=== PATIENT | male | born 1945 | race Caucasian/White ===

== ENCOUNTER 2018-06-18 14:05 | Emergency (ER) | payer OTHER ==
[2018-06-18 14:36] VITALS: RESP 18
[2018-06-18 15:13] LABS: Basophils % (A) 0 %; Eosinophils # (A) 0.1 k/uL (0-0.7); Eosinophils % (A) 1 %; HCT 50.2 % (39.0-53.0); HGB 16.4 gm/dL (13.0-17.5); Lymphocytes # (A) 0.9 k/uL (1.0-4.8); Lymphocytes % (A) 13 %; MCH 33.1 pg (25.0-35.0); MCHC 32.7 g/dL (31.0-37.0); MCV 101.1 fL (80.0-100.0); Mean Platelet Volume 7.6; Monocytes # (A) 0.4 k/uL (0-1.0); Monocytes % (A) 5 %; Neutrophils # (A) 5.4 k/uL (1.3-7.7); Neutrophils % (A) 80 %; Platelet Count 151 k/uL (150-450); RBC 4.97 m/uL (4.30-5.90); RDW 13.1 % (11.5-15.5); WBC 6.8 k/uL (3.8-10.6)
[2018-06-18 15:23] LABS: ALT 26 U/L (21-72); AST 34 U/L (17-59); Albumin 4.3 g/dL (3.5-5.0); Alkaline Phosphatase 116 U/L (38-126); Anion Gap 9 mmol/L; Blood Urea Nitrogen 13 mg/dL (9-20); Carbon Dioxide 21 mmol/L (22-30); Chloride 111 mmol/L (98-107); Glucose 92 mg/dL (74-99); Potassium 4.3 mmol/L (3.5-5.1); Sodium 141 mmol/L (137-145); Total Bilirubin 0.8 mg/dL (0.2-1.3)
[2018-06-18 15:32] LABS: Prothrombin Time 66.8 sec (9.0-12.0)
[2018-06-18 15:51] LABS: INR 7.3 (<1.2)
[2018-06-18 16:07] VITALS: BP 149/82; PULSE 64
[2018-06-18] MEDS ORDERED: PHYTONADIONE ORAL 5 MG/5 ML ORAL.SYRG PO STA (16:21)
--- NOTE | 2018-06-18 16:23 | ED ---
General Adult HPI - General Chief complaint: Recheck/Abnormal Lab/Rx Stated complaint: high coumadin Time Seen by Provider: 06/18/18 15:55 Source: patient, RN notes reviewed, old records reviewed Mode of arrival: ambulatory Limitations: no limitations - History of Present Illness Initial comments: This is a 72-year-old male Patient comes in with no complaints. Patient reports he has an Abnormal outpatient lab test. Per patient has elevated INR, patient currently taking Coumadin, patient taking same doses he has for 2+ years. Some 0.5 mg daily. Patient denies headache, no weakness lightheadedness or dizziness. Patient denies any injuries or nonhealing wounds - Related Data Home Medications Medication Instructions Recorded Confirmed Aspirin [Adult Low Dose Aspirin EC] 81 mg PO DAILY 06/18/18 06/18/18 Cholecalciferol [Vitamin D3] 1,000 unit PO DAILY 06/18/18 06/18/18 Glucosam/José Luis-Msm1/C/Yang/Bosw 1 tab PO DAILY 06/18/18 06/18/18 [Glucosamine-Chondroitin Tablet] [place]-3 Fatty Acids/Fish Oil [Fish 1 cap PO DAILY 06/18/18 06/18/18 Oil 1,000 mg Softgel] Warfarin [Coumadin] 7.5 mg PO HS 06/18/18 06/18/18 Allergies Allergy/AdvReac Type Severity Reaction Status Date / Time No Known Allergies Allergy Verified 06/18/18 16:15 Review of Systems ROS Statement: Those systems with pertinent positive or pertinent negative responses have been documented in the HPI. ROS Other: All systems not noted in ROS Statement are negative. Past Medical History Past Medical History: Deep Vein Thrombosis (DVT) History of Any Multi-Drug Resistant Organisms: None Reported Additional Past Surgical History / Comment(s): KIDNEY SURGERY Past Psychological History: No Psychological Hx Reported Smoking Status: Never smoker Past Alcohol Use History: Occasional Past Drug Use History: None Reported General Exam Limitations: no limitations General appearance: alert, in no apparent distress Head exam: Present: atraumatic, normocephalic, normal inspection Eye exam: Present: normal appearance, PERRL, EOMI. Absent: scleral icterus, conjunctival injection, periorbital swelling ENT exam: Present: normal exam, mucous membranes moist Neck exam: Present: normal inspection. Absent: tenderness, meningismus, lymphadenopathy Respiratory exam: Present: normal lung sounds bilaterally. Absent: respiratory distress, wheezes, rales, rhonchi, stridor Cardiovascular Exam: Present: regular rate, normal rhythm, normal heart sounds. Absent: systolic murmur, diastolic murmur, rubs, gallop, clicks GI/Abdominal exam: Present: soft, normal bowel sounds. Absent: distended, tenderness, guarding, rebound, rigid Extremities exam: Present: normal inspection, full ROM, normal capillary refill. Absent: tenderness, pedal edema, joint swelling, calf tenderness Back exam: Present: normal inspection Neurological exam: Present: alert, oriented X3, CN II-XII intact Psychiatric exam: Present: normal affect, normal mood Skin exam: Present: warm, dry, intact, normal color. Absent: rash Course Vital Signs 06/18/18 06/18/18 14:32 16:01 Temperature 98.9 F Pulse Rate 91 64 Respiratory 18 18 Rate Blood Pressure 153/92 149/82 O2 Sat by Pulse 98 98 Oximetry Medical Decision Making - Medical Decision Making 69 female the ER for evaluation Coumadin coagulopathy, patient given vitamin K we'll hold Coumadin 2 days and be discharged home - Lab Data Result diagrams: 06/18/18 15:04 06/18/18 15:04 Lab Results 06/18/18 06/18/18 06/18/18 Range/Units 15:04 15:04 15:04 WBC 6.8 (3.8-10.6) k/uL RBC 4.97 (4.30-5.90) m/uL Hgb 16.4 (13.0-17.5) gm/dL Hct 50.2 (39.0-53.0) % MCV 101.1 H (80.0-100.0) fL MCH 33.1 (25.0-35.0) pg MCHC 32.7 (31.0-37.0) g/dL RDW 13.1 (11.5-15.5) % Plt Count 151 (150-450) k/uL Neutrophils % 80 % Lymphocytes % 13 % Monocytes % 5 % Eosinophils % 1 % Basophils % 0 % Neutrophils # 5.4 (1.3-7.7) k/uL Lymphocytes # 0.9 L (1.0-4.8) k/uL Monocytes # 0.4 (0-1.0) k/uL Eosinophils # 0.1 (0-0.7) k/uL Basophils # 0.0 (0-0.2) k/uL PT 66.8 H (9.0-12.0) sec INR 7.3 H* (<1.2) Sodium 141 (137-145) mmol/L Potassium 4.3 (3.5-5.1) mmol/L Chloride 111 H (98-107) mmol/L Carbon Dioxide 21 L (22-30) mmol/L Anion Gap 9 mmol/L BUN 13 (9-20) mg/dL Creatinine 0.63 L (0.66-1.25) mg/dL Est GFR (CKD-EPI)AfAm >90 (>60 ml/min/1.73 sqM) Est GFR (CKD-EPI)NonAf >90 (>60 ml/min/1.73 sqM) Glucose 92 (74-99) mg/dL Calcium 9.0 (8.4-10.2) mg/dL Total Bilirubin 0.8 (0.2-1.3) mg/dL AST 34 (17-59) U/L ALT 26 (21-72) U/L Alkaline Phosphatase 116 (38-126) U/L Total Protein 8.0 (6.3-8.2) g/dL Albumin 4.3 (3.5-5.0) g/dL Disposition Clinical Impression: Coumadin toxicity Disposition: HOME SELF-CARE Condition: Good Instructions: Warfarin (By mouth) Is patient prescribed a controlled substance at d/c from ED?: No Referrals: [facility],Clinic [Primary Care Provider] - 1-2 days
[2018-06-18 16:41] VITALS: TEMP 98.2
== END 2018-06-18 16:39 | disposition home or self-care (01) ==
LOC: EC 14:05
DX: R79.1 Abnormal coagulation profile (principal); T45.515A Adverse effect of anticoagulants, initial encounter; Z86.718 Personal history of other venous thrombosis and embolism; Z79.82 Long term (current) use of aspirin; Z79.01 Long term (current) use of anticoagulants; Z79.899 Other long term (current) drug therapy
CPT/HCPCS: 36415; 80053; 85025; 85610; 99284

== ENCOUNTER → 2021-09-26 | Outpatient (CLI) | payer OTHER | END | disposition home or self-care (01) | LOC: LABPAT 15:20 | PROVIDERS: ATTEND Orthopaedic Surgery | DX: M17.11 Unilateral primary osteoarthritis, right knee (principal) | CPT/HCPCS: 87070 ==

== ENCOUNTER 2021-11-12 12:41 | Observation (INO) | payer OTHER, MEDICARE ==
[2021-11-05 09:31] VITALS: BMI 27.4
--- NOTE | 2021-11-11 11:14 | HP ---
HISTORY AND PHYSICAL DATE OF SURGERY: 11/12/2021 Rober Zuniga is a 76-year-old gentleman seen with symptomatic right knee osteoarthritis. We discussed options for treatment. He elected to proceed with right total knee arthroplasty. Consent was obtained. Medical clearance was provided by the [place]. PAST MEDICAL HISTORY: Osteoarthritis. PAST SURGICAL HISTORY: Kidney surgery, cataract surgery. DAILY MEDICATIONS: Aspirin and Coumadin. SOCIAL HISTORY: He denies current tobacco use. ALLERGIES: NONE REPORTED. PHYSICAL EVALUATION OF THE RIGHT KNEE: His range of motion is zero to 120 degrees. There is a mild effusion present. Tenderness along the lateral joint line. Crepitus along the lateral and patellofemoral compartments with range of motion. Pain with patellofemoral compression. Ligaments stable. Distal neurovascular exam intact. There is severe valgus deformity about the knee. Radiographs of the right knee reveal severe lateral compartment osteoarthritis with a severe valgus deformity. IMPRESSION: Symptomatic right knee osteoarthritis. PLAN: Right total knee arthroplasty. MMODL / IJN: [id number] /
[~2021-11-12 12:41] MED LIST: ACETAMINOPHEN TAB 500 MG TAB PO PRN; DEXAMETHASONE SOD PHOSPHATE 4 MG/ML 1 ML VIAL IV ONE; HYDROmorphone 0.5 MG/0.5 ML SYRINGE IVP PRN; LIDOCAINE 1% (10MG/ML) FOR IV START INTRADERMA PRN; MELOXICAM 7.5 MG TAB PO PRN; ONDANSETRON 4 MG/2 ML VIAL IVP ONE; TRANEXAMIC ACID 1,000 MG in SODIUM CHLORIDE 0.9% 100 ML IVPB PRN
[2021-11-12] MEDS: LACTATED RINGERS 1,000 ML IV SCH (13:34)
[2021-11-12 14:17] LABS: Prothrombin Time 11.3 sec (9.0-12.0)
[2021-11-12] MEDS ORDERED: fentaNYL (PF) 50 MCG/ML 2 ML AMP IVP ONE (14:26)
[2021-11-12] MEDS ORDERED: MIDAZOLAM 2 MG/2 ML VIAL IVP ONE (14:26)
[2021-11-12] MEDS ORDERED: ROPIVACAINE 0.2%-NS ON-Q PUMP 1,090 MG, EMPTY PAIN BALL 1 EACH MISCELLANE PRN (15:13)
--- NOTE | 2021-11-12 15:20 | P.ANPRN ---
Procedure Note - Anesthesia - Nerve Block Performed Right Adductor Canal Time Out Performed: Yes (14:25) Date of Procedure: 11/12/21 Procedure Start Time: : Procedure Stop Time: 14:36 Location of Patient: PreOp Indication: Acute Post-Operative Pain, Requested by Surgeon (Dr Cameron) Sedation Type: Sedate with meaningful contact maintained Preparation: Sterile Prep, Sterile Dressing Position: Supine Catheter: Indwelling Needle Types: Pajunk Needle Gauge: 21 Ultrasound used to visualize needle placement: Yes Ultrasound used to observe medication spread: Yes Injectate: 0.5% Ropivacaine (see comment for volume) (15cc) Blood Aspirated: No Pain Paresthesia on Injection Noted: No Resistance on Injection: Normal Image Stored and Saved: Yes Events: Uneventful and Well Tolerated
[2021-11-12] MEDS ORDERED: ROPIVACAINE 5 MG/ML 30 ML VIAL ONE (15:21)
[2021-11-12] MEDS ORDERED: SODIUM CHLORIDE 0.9% (PF) 10 ML VIAL ONE (15:21)
[2021-11-12] MEDS ORDERED: MIDAZOLAM 2 MG/2 ML VIAL ONE (15:21)
[2021-11-12] MEDS ORDERED: PROPOFOL 10 MG/ML 20 ML VIAL IV ONE (15:21)
[2021-11-12] MEDS ORDERED: TRANEXAMIC ACID 1,000 MG/10 ML VIAL ONE (15:21)
[2021-11-12] MEDS ORDERED: SODIUM CHLORIDE 0.9% 100 ML BAG ONE (15:21)
--- NOTE | 2021-11-12 15:22 | P.ANPRN ---
Procedure Note - Anesthesia - Nerve Block Performed Right iPack Time Out Performed: Yes Date of Procedure: 11/12/21 Procedure Start Time: 14:37 Procedure Stop Time: 14:48 Location of Patient: PreOp Indication: Acute Post-Operative Pain, Requested by Surgeon (Dr escamilla) Sedation Type: Sedate with meaningful contact maintained Preparation: Sterile Prep Position: Supine Catheter: None Needle Types: Pajunk Needle Gauge: 21 Ultrasound used to visualize needle placement: Yes Ultrasound used to observe medication spread: Yes Injectate: 0.5% Ropivacaine (see comment for volume) (15cc + 5cc PF Normal saline) Blood Aspirated: No Pain Paresthesia on Injection Noted: No Resistance on Injection: Normal Image Stored and Saved: Yes Events: Uneventful and Well Tolerated
[2021-11-12] MEDS ORDERED: LACTATED RINGERS 1,000 ML IV ONE ×3 (16:36)
[2021-11-12] MEDS ORDERED: ONDANSETRON 4 MG/2 ML VIAL IVP PRN (17:12)
[2021-11-12] MEDS ORDERED: NALOXONE 0.4 MG/ML 1 ML VIAL IV PRN (17:12)
[2021-11-12] MEDS ORDERED: HYDROcodone/APAP 5-325MG 1 EACH TAB PO PRN (17:12)
[2021-11-12] MEDS ORDERED: HYDROmorphone 0.2 MG/1 ML SYRINGE IVP PRN (17:12)
[2021-11-12] MEDS ORDERED: HYDROmorphone 0.5 MG/0.5 ML SYRINGE IVP PRN ×2 (17:12)
--- NOTE | 2021-11-12 17:12 | P.OP ---
Date of Procedure: 11/12/21 Preoperative Diagnosis: Right knee osteoarthritis Postoperative Diagnosis: Right knee osteoarthritis Procedure(s) Performed: Right total knee arthroplasty Implants: 1. Depuy attune size 5 right cruciate retaining cemented femur 2. Depuy attune size 5 fixed bearing cemented tibial baseplate 3. Depuy attune size 5 cruciate retaining fixed bearing 10 mm polyethylene tibial insert 4. Depuy attune 38 mm all polyethylene cemented patella Anesthesia: regional (Adductor canal catheter, Ipack block), spinal Surgeon: Chevy Cameron Brick Picker #1: Ole Fletcher Estimated Blood Loss (ml): 60 Pathology: other (bone) Condition: stable Disposition: PACU Indications for Procedure: 76-year-old patient with symptomatic right knee osteoarthritis. After having treatment options discussed, he elected to proceed with total knee arthroplasty. Operative Findings: see description of procedure Description of Procedure: Patient was taken to the operative suite after having an adductor canal catheter placed by the department of anesthesia as well as and Ipack block for postoperative pain management. Patient underwent a spinal anesthetic by the department of anesthesia. Patient was given preoperative IV intake antibiotics and TXA. A well-padded tourniquet was placed about the right lower extremity. The lower extremity was then prepped and draped in the normal sterile orthopedic fashion. The extremity was elevated, a tourniquet was insufflated to 300. A standard anterior incision was made sharply through skin. Dissection was taken down through the subcutaneous soft tissues down to the extensor mechanism. A medial arthrotomy was performed, patella was everted and knee was flexed. There was advanced osteoarthritis noted along with a severe valgus deformity. I introduced my distal intramedullary femoral drill. I then introduced the distal femoral cutting jig. Lonnie WALLACE secured the cutting jig with 2 pins. I held retractors in position while Lonnie WALLACE performed the distal femoral resection through the guide area we now removed her distal femoral cutting guide. We now placed our 4-in-1 femoral cutting block and positioned and it was secured with 2 pins by Lonnie WALLACE while I held the block in position. The distal femoral finishing was now completed. A proximal tibial cutting guide was positioned. I held the guide in the appropriate position with both hands well Lonnie WALLACE inserted stabilizing pins into the guide. Proximal tibial cut was made. We now placed a trial femoral component into position, along with an appropriate size tibial tray and insert. We now took the knee through range of motion and had full extension good flexion and good overall soft tissue balance noted. The patella was everted and stabilized with 2 towel clips held by Lonnie WALLACE while I performed a flush with patellar quad tendon utilizing a fresh sawblade. We templated the patella, appropriate drill holes were made. An appropriate trial patella was positioned, knee was taken through full range of motion with the patella tracking very nicely. The trial patella was removed. Drill holes were made through the femoral component. All trial components were removed after marking off the appropriate rotation of the tibia. Retractors were now positioned along the proximal tibia. An appropriate keel punch was made with the appropriate size tibial guide by myself on Lonnie WALLACE assisted by holding retractors. At this point appropriate size implants were chosen and opened. The joint was irrigated copiously with pulse lavage mechanical irrigation. The posterior capsule was infiltrated with local analgesic. The wound was irrigated with pulse lavage mechanical irrigation. We mixed antibiotic methylmethacrylate. We placed the knee into flexion. We placed multiple retractors assisted by Lonnie WALLACE to expose the proximal tibia. Once the methyl methacrylate was ready, the tibial component was cemented into place removing any excess methylmethacrylate form by both myself and Lonnie WALLACE. The femoral component was cemented into place removing the removing any excess methylmethacrylate performed by both myself and Lonnie WALLACE. We then inserted the appropriate size polyethylene tibial insert. We made sure that it was locked into position. We took the knee into full extension, and then back in a flexion making sure we had removed any excess methylmethacrylate. The patellar component was then cemented down and secured with clamp. Excess methylmethacrylate removed. We kept the knee in full extension, patellar clamp in position until methylmethacrylate had hardened. Once it had hardened the patellar clamp was removed. The knee was taken through full range of motion. The patella tracked nicely. There was good soft tissue balancing. The tourniquet was now released. Additional hemostasis was achieved via electrocautery. A second gram of TXA was given. The wound again was irrigated with pulse lavage mechanical irrigation. The superficial soft tissues were infiltrated local analgesic. The extensor mechanism was repaired with Ethibond. We checked the repair with range of motion and it was stable. The subcutaneous soft tissues were repaired with Vicryl in layers. The skin was approximated with pernio/Dermabond. Sterile dressings were applied followed by loose web roll and Warren bandage. The patient was transferred to a bed, and taken to recovery in stable and satisfactory condition. Lonnie WALLACE assisted with this complex procedure.
--- NOTE | 2021-11-12 18:10 | XR ---
EXAMINATION TYPE: XR knee limited RT DATE OF EXAM: 11/12/2021 5:48 PM INDICATION: Patient age:Male; 76 years old; Reason for study: Evaluation for Postop abnormality and alignment; COMPARISON: Radiograph 12/15/2013 TECHNIQUE: The right knee was examined in 2 projections. FINDINGS: Right total arthroplasty changes the knee with in appropriate alignment. There is postsurgi beth changes within the knee capsule including lucencies within the joint space consistent calf. It villavicencio rdware appears intact. There is no evidence of acute fracture. IMPRESSION: 1. No acute osseous pathology. 2. Post right total knee arthroplasty changes joint in appropriate anatomic position.
[2021-11-12] MEDS: SODIUM CHLORIDE 0.9% 1,000 ML IV SCH (21:40)
[2021-11-12] MEDS: SENNOSIDES-DOCUSATE SODIUM 1 EACH TAB PO SCH (22:33)
[2021-11-12] MEDS: HYDROcodone/APAP 5-325MG 1 EACH TAB PO PRN (23:23)
--- NOTE | 2021-11-13 02:35 | P.CONS ---
History of Present Illness - Reason for Consult Consult date: 11/12/21 medical management Requesting physician: Chevy Cameron - Chief Complaint OA - History of Present Illness 76 year old male with no significant past medical history patient presented for scheduled right total knee replacement , due to severe advanced OA. tolerated procedure well, no observed immediate complications post op , tolerated PO intake , did not walk yet, pain tolerated. denies any medical concerns denies chest pain or trouble breathing, abd pain , nausea or vomiting Review of Systems Pertinent positives as noted in HPI. All other systems were reviewed and are negative Past Medical History Past Medical History: Cancer, Deep Vein Thrombosis (DVT) Additional Past Medical History / Comment(s): DVTx2. renal cell carcinoma 2004. prostate cancer 2018 History of Any Multi-Drug Resistant Organisms: None Reported Additional Past Surgical History / Comment(s): KIDNEY SURGERY for renal cell carcinoma 2004. prostate procedure 02/05/21 Past Anesthesia/Blood Transfusion Reactions: No Reported Reaction Past Psychological History: No Psychological Hx Reported Smoking Status: Never smoker Past Alcohol Use History: Occasional Past Drug Use History: None Reported - Past Family History Mother Family Medical History: Cancer Additional Family Medical History / Comment(s): breast cancer age 95 Medications and Allergies Home Medications Medication Instructions Recorded Confirmed Type Aspirin [Adult Low Dose Aspirin EC] 81 mg PO DAILY 11/05/21 11/12/21 History Cholecalciferol [Vitamin D3 (25 25 mcg PO DAILY 11/05/21 11/12/21 History Mcg = 1000 Iu)] [place]-3 Fatty Acids/Fish Oil [Fish 1 each PO DAILY 11/05/21 11/12/21 History Oil 1,000 mg Softgel] Warfarin [Coumadin] 3.75 mg PO SUTUTHSA 11/05/21 11/12/21 History Warfarin [Coumadin] 7.5 mg PO MOWEFR 11/05/21 11/12/21 History Allergies Allergy/AdvReac Type Severity Reaction Status Date / Time No Known Allergies Allergy Verified 11/12/21 13:15 Physical Exam Vitals: Vital Signs Temp Pulse Pulse Resp BP BP Pulse Ox 11/12/21 22:55 158/82 11/12/21 22:40 80 149/71 97 11/12/21 22:25 74 156/82 98 11/12/21 22:10 87 148/86 94 L 11/12/21 21:55 93 146/84 93 L 11/12/21 21:40 75 149/78 98 11/12/21 21:25 75 149/78 98 11/12/21 21:19 57 L 16 11/12/21 21:10 74 161/86 11/12/21 20:55 81 153/97 11/12/21 20:40 88 169/88 95 11/12/21 20:20 98.8 F 85 173/96 93 L 11/12/21 19:00 57 L 16 153/87 95 11/12/21 18:45 51 L 16 146/80 95 11/12/21 18:30 46 L 16 148/83 95 11/12/21 18:15 53 L 16 138/77 96 11/12/21 18:00 53 L 16 139/74 96 11/12/21 17:43 51 L 16 134/74 95 11/12/21 17:28 97 F L 16 134/74 95 11/12/21 14:51 59 L 16 127/76 98 11/12/21 13:20 97.4 F L 94 16 145/91 97 Intake and Output 11/12/21 11/12/21 11/13/21 14:59 22:59 06:59 Intake Total 500 750 Output Total 1060 Balance 500 -310 Intake: IV 500 750 Output: Urine 1000 Estimated Blood Loss 60 Other: Voiding Method Urinal # Voids 1 Weight 75.9 kg 75.9 kg Constitutional: No acute distress, conversant, pleasant Eyes: Anicteric sclerae, moist conjunctiva, Pupils equal round reactive to light ENMT: NC/AT Oropharynx clear, no erythema, or exudates Neck: Supple, FROM, no masses, or JVD No carotid bruits No thyromegaly Lungs: Clear to auscultation Clear to percussion Normal respiratory effort, no accessory muscle use Cardiovascular: Heart regular in rate and rhythm, No murmurs, gallops, or rubs No peripheral edema Abdominal: Soft Nontender, no guarding, rebound or rigidity Abdomen moving with respiration Normoactive bowel sounds No hepatomegaly, No splenomegaly No palpable mass No abdominal wall hernia noted Skin: Normal temperature, tone, texture, turgor No induration No subcutaneous nodules No rash, lesions No ulcers Extremities: No digital cyanosis No clubbing Pedal pulses intact and symmetrical Radial pulses intact and symmetrical No calf tenderness Psychiatric: Alert and oriented to person, place and time Appropriate affect fair judgement Neuro Muscles Strength 5/5 in all 4 extremities limitations over right lower extremity due to recent surgery Sensation to light touch grossly present throughout Cranial nerves II-XII grossly intact No focal sensory deficits Lymphatics: no palpable cervical or supraclavicular , or inguinal lymph nodes Assessment and Plan Assessment: severe right knee OA, s/p total knee arthroplasty pod #zero pain control and DVT PPX per ortho follow up CBC and BMP Thank you for allowing us to participate in the care of this patient. Do not hesitate to contact us with questions. Someone can be reached from the [facility][Note 3] hospitalist group at all hours of the day at [phone].
[2021-11-13] MEDS: LACTATED RINGERS 1,000 ML IV SCH (08:26)
[2021-11-13] MEDS: HYDROcodone/APAP 5-325MG 1 EACH TAB PO PRN ×2 (08:55→20:00)
--- NOTE | 2021-11-13 09:32 | P.PN ---
Progress Note - Text Progress Note Date: 11/13/21 Patient evaluated at 0655 am. Patient is a 76 y/o male who is POD#1 following right TKA. He currently has an indwelling perineural catheter for post operative pain management. Patient sitting in bed and has not ambulated yet today. Reports a VAS of 3-4/10 on the medial aspect of his knee. NO complaints of fever/chills, tenderness at site of perineural catheter and/or paresthesias/numbness. Perineural catheter insitu and infusing well. Discussed with patient regarding importance of oral analgesia in addition to the perineural catheter over the next 48 hours to aid with pain control. Will follow up as indicated.
[2021-11-13 09:35] LABS: Basophils # (A) 0.02 X 10*3/uL (0.00-0.10); Basophils % (A) 0.3 %; Eosinophils # (A) 0 X 10*3/uL (0.04-0.35); Eosinophils % (A) 0 %; HCT 36.5 % (39.6-50.0); HGB 12.1 g/dL (13.0-17.0); Lymphocytes # (A) 0.92 X 10*3/uL (0.90-5.00); Lymphocytes % (A) 12.8 %; MCH 32.4 pg (27.0-32.0); MCHC 33.2 g/dL (32.0-37.0); MCV 97.9 fL (80.0-97.0); Mean Platelet Volume 10.5 fL (9.5-12.2); Monocytes # (A) 0.63 X 10*3/uL (0.20-1.00); Monocytes % (A) 8.8 %; Neutrophils # (A) 5.57 X 10*3/uL (1.80-7.70); Neutrophils % (A) 77.8 %; Platelet Count 141 X 10*3/uL (140-440); RBC 3.73 X 10*6/uL (4.40-5.60); RDW 13.6 % (11.5-14.5); WBC 7.16 X 10*3/uL (4.50-10.00)
[2021-11-13 09:57] LABS: African American GFR (CKD) 108.9 (60.0-200.0); Anion Gap 12.1 mmol/L (10.00-18.00); BUN/Creat Ratio 17.28 Ratio (12.00-20.00); Blood Urea Nitrogen 11.2 mg/dL (9.0-27.0); Calcium 8.2 mg/dL (8.7-10.3); Carbon Dioxide 20.4 mmol/L (20.0-27.5); Potassium 3.9 mmol/L (3.5-5.5)
[2021-11-13] MEDS: ENOXAPARIN 30 MG/0.3 ML SYRINGE SQ SCH ×2 (10:22→20:00)
[2021-11-13] MEDS: SODIUM CHLORIDE 0.9% 1,000 ML IV SCH (10:35)
[2021-11-13 10:46] LABS: Prothrombin Time 11.3 sec (9.0-12.0)
[2021-11-13] MEDS ORDERED: WARFARIN 7.5 MG TAB PO SCH (12:15)
--- NOTE | 2021-11-13 12:16 | P.PN ---
Subjective Patient admitted for right knee arthroplasty osteoarthritis patient has an attack in all catheter for pain management and patient pain is well-controlled disease with the didn't participate well with physical therapy. Patient otherwise denied any symptoms. Constitutional: Denied any fatigue denied any fever. Cardio vascular: denied any chest pain, palpitations Gastrointestinal denied any nausea vomiting Pulmonary: Denied any shortness of breath cough Neurologic denied any new focal deficits All inpatient medications were reviewed and appropriate changes in these medications as dictated in the interval history and assessment and plan. PHYSICAL EXAMINATION: GENERAL: The patient is alert and oriented x3, not in any acute distress. Well developed, well nourished. HEENT: Pupils are round and equally reacting to light. EOMI. No scleral icterus. No conjunctival pallor. Normocephalic, atraumatic. No pharyngeal erythema. No thyromegaly. CARDIOVASCULAR: S1 and S2 present. No murmurs, rubs, or gallops. PULMONARY: Chest is clear to auscultation, no wheezing or crackles. ABDOMEN: Soft, nontender, nondistended, normoactive bowel sounds. No palpable organomegaly. MUSCULOSKELETAL: Deferred to orthopedic surgery EXTREMITIES: No cyanosis, clubbing, or pedal edema. NEUROLOGICAL: Gross neurological examination did not reveal any focal deficits. SKIN: No rashes. Assessment and plan -History of DVT in the past patient is was resumed on Coumadin which is appropriate -History of renal cell carcinoma which is in remission and prostate cancer in remission -Right knee arthroplasty: Patient is status post right knee arthroplasty po stoperative day one pain is fairly well controlled but is not perspiring and physical therapy again Objective - Vital Signs Vital signs: Vital Signs Temp 98.1 F 11/13/21 02:00 Pulse 63 11/13/21 02:00 Resp 17 11/13/21 02:00 BP 114/73 11/13/21 02:00 Pulse Ox 95 11/13/21 02:00 Intake & Output 11/12/21 11/13/21 11/13/21 18:59 06:59 18:59 Intake Total 1100 150 180 Output Total 60 1200 150 Balance 1040 -1050 30 Weight 75.9 kg 75.9 kg Intake: IV 1100 150 Oral 180 Output: Urine 1200 150 Estimated Blood Loss 60 Other: Voiding Method Urinal # Voids 1 1 - Labs CBC & Chem 7: 11/13/21 03:37 11/13/21 03:37 Labs: Abnormal Lab Results - Last 24 Hours (Table) 11/13/21 11/13/21 Range/Units 03:37 03:37 RBC 3.73 L (4.40-5.60) X 10*6/uL Hgb 12.1 L (13.0-17.0) g/dL Hct 36.5 L (39.6-50.0) % MCV 97.9 H (80.0-97.0) fL MCH 32.4 H (27.0-32.0) pg Eosinophils # 0 L (0.04-0.35) X 10*3/uL Calcium 8.2 L (8.7-10.3) mg/dL
--- NOTE | 2021-11-13 12:20 | P.PN ---
Subjective Progress Note Date: 11/13/21 Principal diagnosis: Right knee osteoarthritis Patient was seen at bedside this morning sitting comfortably sitting up in chair. Patient says his knee is in moderate amount of pain. Patient says pain is mostly localized to the front of the knee and also on the medial side. Kae carnes did get up with physical therapy this morning is able to get to the chair. Patient says he has not had bowel movement yet, however, patient says he has been passing gas. Patient says he does not have a walker for home yet. Patient denies chest pain, fever, shortness of breath, nausea, vomiting, vision, loss of bowel/bladder control. Objective - Vital Signs Vital signs: Vital Signs Temp 98.1 F 11/13/21 02:00 Pulse 63 11/13/21 02:00 Resp 17 11/13/21 02:00 BP 114/73 11/13/21 02:00 Pulse Ox 95 11/13/21 02:00 Intake & Output 11/12/21 11/13/21 11/13/21 18:59 06:59 18:59 Intake Total 1100 150 180 Output Total 60 1200 150 Balance 1040 -1050 30 Weight 75.9 kg 75.9 kg Intake: IV 1100 150 Oral 180 Output: Urine 1200 150 Estimated Blood Loss 60 Other: Voiding Method Urinal # Voids 1 1 - Exam Right knee: Incision is clean, dry, and intact. The silver foam dressing is in good condition. There is minimal soft tissue swelling and ecchymosis surrounding the medial and lateral aspects of the incision. Calf is soft, no tenderness with palpation. Plantar flexion, dorsiflexion, EHL, FHL are intact. Sensory exam to light touch throughout the extremity is intact, dorsal pedis pulses 2+. - Labs CBC & Chem 7: 11/13/21 03:37 11/13/21 03:37 Labs: Abnormal Lab Results - Last 24 Hours (Table) 11/13/21 11/13/21 Range/Units 03:37 03:37 RBC 3.73 L (4.40-5.60) X 10*6/uL Hgb 12.1 L (13.0-17.0) g/dL Hct 36.5 L (39.6-50.0) % MCV 97.9 H (80.0-97.0) fL MCH 32.4 H (27.0-32.0) pg Eosinophils # 0 L (0.04-0.35) X 10*3/uL Calcium 8.2 L (8.7-10.3) mg/dL Assessment and Plan Assessment: Right knee osteoarthritis Postoperative day 1 status post right total knee arthroplasty Plan: 1. Right knee osteoarthritis - right total knee arthroplasty from yes, 11/12/2021. Patient stable at bedside this morning. Plan discharge home versus rehab tomorr versus 2. Appreciate medical management 3. Pain management - [place]; Dilaudid only if needed 4. DVT prophylaxis - Lovenox 5. GI prophylaxis - senna 6. PT/OT - weightbearing as tolerated with walker 7. Encourage incentive spirometer use 8. Discharge planning - discharge home versus rehab tomorrow versus Time with Patient: Less than 30
[2021-11-13] MEDS ORDERED: WARFARIN 7.5 MG TAB PO ONE (18:00)
[2021-11-13] MEDS: SENNOSIDES-DOCUSATE SODIUM 1 EACH TAB PO SCH (20:00)
[2021-11-14 04:00] LABS: INR 1.1 (<1.2); Prothrombin Time 11.8 sec (9.0-12.0)
[2021-11-14] MEDS: LACTATED RINGERS 1,000 ML IV SCH (05:41)
--- NOTE | 2021-11-14 08:47 | P.PN ---
Subjective Progress Note Date: 11/14/21 Principal diagnosis: status post right total knee arthroplasty Patient is evaluated at bedside today, his resting in his hospital bed. He states that his pain is better controlled today. He denies any headaches, lightheadedness, chest pain or shortness of breath. He did not ambulate much with this yesterday. I had a discussion today that he needs to get up with therapy and move around a little bit more today. Objective - Vital Signs Vital signs: Vital Signs Temp 98.6 F 11/14/21 02:00 Pulse 75 11/14/21 02:00 Resp 17 11/14/21 02:00 BP 137/78 11/14/21 02:00 Pulse Ox 95 11/14/21 02:00 Intake & Output 11/13/21 11/14/21 11/14/21 18:59 06:59 18:59 Intake Total 180 Output Total 300 250 Balance -120 -250 Intake: Oral 180 Output: Urine 300 250 Other: Voiding Method Urinal # Voids 1 - Exam Right lower extremity: Incision is clean, dry, and intact. The foam dressing is in good condition. Th ere is minimal soft tissue swelling and ecchymosis surrounding the medial and lateral aspects of the incision. Calf is soft, no tenderness with palpation. Plantar flexion, dorsiflexion, EHL, FHL are intact. Sensory exam to light touch throughout the extremity is intact, dorsal pedis pulses 2+. - Labs CBC & Chem 7: 11/13/21 03:37 11/13/21 03:37 Labs: Abnormal Lab Results - Last 24 Hours (Table) 11/13/21 11/13/21 Range/Units 03:37 03:37 RBC 3.73 L (4.40-5.60) X 10*6/uL Hgb 12.1 L (13.0-17.0) g/dL Hct 36.5 L (39.6-50.0) % MCV 97.9 H (80.0-97.0) fL MCH 32.4 H (27.0-32.0) pg Eosinophils # 0 L (0.04-0.35) X 10*3/uL Calcium 8.2 L (8.7-10.3) mg/dL Assessment and Plan Assessment: Postoperative day #2 status post right total knee arthroplasty Plan: Pain control, continue with current medication DVT prophylaxis, continue subcu medication Continue with physical therapy Weight-bear as tolerated, utilize walker at all times Ice and elevate often Medical recommendations Discharge planning: Discussed with case management and social work, plan is for discharge to rehab on 11/15/2021. Time with Patient: Less than 30
[2021-11-14] MEDS: ENOXAPARIN 30 MG/0.3 ML SYRINGE SQ SCH ×2 (09:21→21:49)
[2021-11-14] MEDS: SODIUM CHLORIDE 0.9% 1,000 ML IV SCH (10:52)
[2021-11-14] MEDS ORDERED: SENNOSIDES 8.6 MG TAB PO PRN (11:51)
--- NOTE | 2021-11-14 11:54 | P.PN ---
Subjective Patient admitted for right knee arthroplasty osteoarthritis patient has an attack in all catheter for pain management and patient pain is well-controlled disease with the didn't participate well with physical therapy. Patient otherwise denied any symptoms. 202111/10/2021 Patient pain is well controlled when not ambulating upon exercise and ambulation patient does still having pain. Patient does have bowel sounds were did not move his bowels didn't pass much of gas. Patient was started on senna and MiraLAX for that patient last bowel movement was on Friday. Patient was started on Lovenox due to prophylaxis dose at this time patient is also on Coumadin was resumed on Coumadin. Patient probably will be discharged to subacute rehabitati on tomorrow. Constitutional: Denied any fatigue denied any fever. Cardio vascular: denied any chest pain, palpitations Gastrointestinal denied any nausea vomiting Pulmonary: Denied any shortness of breath cough Neurologic denied any new focal deficits All inpatient medications were reviewed and appropriate changes in these medications as dictated in the interval history and assessment and plan. PHYSICAL EXAMINATION: GENERAL: The patient is alert and oriented x3, not in any acute distress. Well developed, well nourished. HEENT: Pupils are round and equally reacting to light. EOMI. No scleral icterus. No conjunctival pallor. Normocephalic, atraumatic. No pharyngeal erythema. No thyromegaly. CARDIOVASCULAR: S1 and S2 present. No murmurs, rubs, or gallops. PULMONARY: Chest is clear to auscultation, no wheezing or crackles. ABDOMEN: Soft, nontender, nondistended, normoactive bowel sounds. No palpable organomegaly. MUSCULOSKELETAL: Deferred to orthopedic surgery EXTREMITIES: No cyanosis, clubbing, or pedal edema. NEUROLOGICAL: Gross neurological examination did not reveal any focal deficits. SKIN: No rashes. Assessment and plan -History of DVT in the past patient was resumed on Coumadin which is appropriate patient is on 30 mg twice a day of Lovenox as well. -History of renal cell carcinoma which is in remission and prostate cancer in remission -Right knee arthroplasty: Patient is status post right knee arthroplasty postoperative day one pain is fairly well controlled but is not perspiring and physical therapy again Objective - Vital Signs Vital signs: Vital Signs Temp 98.6 F 11/14/21 02:00 Pulse 75 11/14/21 02:00 Resp 17 11/14/21 02:00 BP 137/78 11/14/21 02:00 Pulse Ox 95 11/14/21 02:00 Intake & Output 11/13/21 11/14/21 11/14/21 18:59 06:59 18:59 Intake Total 180 180 Output Total 300 250 225 Balance -120 -250 -45 Intake: Oral 180 180 Output: Urine 300 250 225 Other: Voiding Method Urinal Urinal # Voids 1 - Labs CBC & Chem 7: 11/13/21 03:37 11/13/21 03:37
[2021-11-14] MEDS ORDERED: WARFARIN 7.5 MG TAB PO SCH (12:15)
[2021-11-14] MEDS ORDERED: WARFARIN 7.5 MG TAB PO ONE (18:00)
[2021-11-14] MEDS: SENNOSIDES-DOCUSATE SODIUM 1 EACH TAB PO SCH (21:49)
[2021-11-15 05:32] LABS: INR 1.2 (<1.2); Prothrombin Time 12.5 sec (9.0-12.0)
[2021-11-15] MEDS: SODIUM CHLORIDE 0.9% 1,000 ML IV SCH (07:25)
[2021-11-15] MEDS: LACTATED RINGERS 1,000 ML IV SCH (07:27)
[2021-11-15 08:26] LABS: Basophils # (A) 0.02 X 10*3/uL (0.00-0.10); Basophils % (A) 0.3 %; Eosinophils # (A) 0.03 X 10*3/uL (0.04-0.35); Eosinophils % (A) 0.5 %; HCT 33.7 % (39.6-50.0); HGB 11.3 g/dL (13.0-17.0); Lymphocytes # (A) 1.17 X 10*3/uL (0.90-5.00); Lymphocytes % (A) 18.9 %; MCH 32.8 pg (27.0-32.0); MCHC 33.5 g/dL (32.0-37.0); MCV 97.7 fL (80.0-97.0); Mean Platelet Volume 11.2 fL (9.5-12.2); Monocytes # (A) 0.75 X 10*3/uL (0.20-1.00); Monocytes % (A) 12.1 %; Neutrophils # (A) 4.21 X 10*3/uL (1.80-7.70); Platelet Count 125 X 10*3/uL (140-440); RBC 3.45 X 10*6/uL (4.40-5.60); RDW 13.6 % (11.5-14.5); WBC 6.19 X 10*3/uL (4.50-10.00)
[2021-11-15] MEDS ORDERED: ACETAMINOPHEN TAB 325 MG TAB PO STA (09:29)
[2021-11-15 09:53] VITALS: RESP 18
--- NOTE | 2021-11-15 10:24 | P.PN ---
Subjective Progress Note Date: 11/15/21 Principal diagnosis: status post right total knee arthroplasty Patient is evaluated at bedside today, his resting in his hospital bed. He denies any headaches, lightheadedness, chest pain or shortness of breath. Patient's pain is greatly improved since yesterday. Objective - Vital Signs Vital signs: Vital Signs Temp 98.7 F 11/15/21 07:50 Pulse 85 11/15/21 07:50 Resp 18 11/15/21 07:50 BP 122/76 11/15/21 07:50 Pulse Ox 94 L 11/15/21 07:50 Intake & Output 11/14/21 11/15/21 11/15/21 18:59 06:59 18:59 Intake Total 180 180 Output Total 225 550 Balance -45 -550 180 Intake: Oral 180 180 Output: Urine 225 550 Other: Voiding Method Urinal Urinal # Voids 4 - Exam Right lower extremity: Incision is clean, dry, and intact. The foam dressing is in good condition. There is minimal soft tissue swelling and ecchymosis surrounding the medial and lateral aspects of the incision. Calf is soft, no tenderness with palpation. Plantar flexion, dorsiflexion, EHL, FHL are intact. Sensory exam to light touch throughout the extremity is intact, dorsal pedis pulses 2+. - Labs CBC & Chem 7: 11/15/21 04:53 11/13/21 03:37 Labs: Abnormal Lab Results - Last 24 Hours (Table) 11/15/21 11/15/21 Range/Units 04:49 04:53 RBC 3.45 L (4.40-5.60) X 10*6/uL Hgb 11.3 L (13.0-17.0) g/dL Hct 33.7 L (39.6-50.0) % MCV 97.7 H (80.0-97.0) fL MCH 32.8 H (27.0-32.0) pg Plt Count 125 L (140-440) X 10*3/uL Eosinophils # 0.03 L (0.04-0.35) X 10*3/uL PT 12.5 H (9.0-12.0) sec INR 1.2 H (<1.2) Assessment and Plan Assessment: Postoperative day #3 status post right total knee arthroplasty Plan: Pain control, plan for discharge on [place] 5 mg/325 mg DVT prophylaxis, we'll continue subcu medication until INR is therapeutic. INR prescription for draws has been placed in chart for rehab Continue with physical therapy Weight-bear as tolerated, utilize walker at all times Ice and elevate often Medical recommendations Discharge planning: Discharge to rehab today Time with Patient: Less than 30
[2021-11-15] MEDS: ENOXAPARIN 30 MG/0.3 ML SYRINGE SQ SCH (10:49)
--- NOTE | 2021-11-15 14:29 | P.DS ---
Providers Date of admission: 11/13/21 13:45 Expected date of discharge: 11/15/21 Attending physician: Chevy Cameron Consults: 11/12/21 17:12 Consult Physician Routine Consulting Provider: Fani Matson Consult Reason/Comments: Medical management Do you want consulting provider notified?: Yes Primary care physician: [facility] Hospital Course: Date of admission: 11/12/2021 Date of discharge: 11/15/2021 Admission diagnosis: Status post right total knee arthroplasty Discharge diagnosis: Same Attending physician: Dr. Cameron Surgical procedures: Right total knee arthroplasty Brief history: Patient is a 76-year-old male with a history of progressive primary right knee osteoarthritis. At this point patient has failed conservative treatment measures and has opted to proceed with a elective right total knee arthroplasty. Hospital course: Details of patient's surgery can be found in operative report. Patient tolerated the procedure well and was subsequently transported to orthopedic floor. Patient's orthopeidc and medical care was provided daily. Patient had daily laboratory tests performed for evaluation of overall blood counts. Patient had daily physical therapy to include strengthening range of motion as well as education with walker ambulation. Patient was treated with Lovenox for their postoperative DVT prophylaxis during their inpatient stay. Patient was noted to have a relatively uneventful postoperative course. Patient reported satisfactory pain control with oral pain medications by postoperative day 0. Patient showed satisfactory progress with physical therapy. Patient moved steadily through the program and had no difficulty meeting the goals by postoperative day 3. Given patient's otherwise satisfactory course and having met physical therapy goals, plan is to discharge patient rehab on postoperative day 3. Discharge condition/disposition: Patient will be discharged rehab in stable condition. Discharge medications: Instructions are given on resumption of patient's normal daily medications per primary care recommendation, in addition patient will be prescribed [place] 5mg/325mg, Heparin 5000 units, Colace 100mg, Mirilax 17g, Sennokot 8.6mg. Discharge instructions: 1. Wound care and infection precautions, keep incision dry and covered while showering, no lotions, creams, moisturizers. No soaking, tubs, pools, hottubs. Do not scrub over the incision. 2. Weight-bear as tolerated with walker / cane until follow-up. 3. Ice and elevate when necessary. Do not exceed 20 minutes per hour with ice pack. 4. Utilize compression sleeve until seen at first follow up appointment. 5. Visiting nursing care. 6. Home physical therapy including home CPM. 7. Pain meds and anticoagulants per prescription. 8. Pain medication has potential to cause constipation. Increase oral fluid and fiber intake. Contact primary care provider if you have not had a bowel movement within 48 hours after discharge 9. No anti-inflammatory medication until discussed at first post operative visit, this including Motrin, Aleve, Mobic, Diclofenac. 10. Follow up in office at 2 weeks postop with Lonnie Fletcher PA-C/Yobany Jama 11. Follow up with your primary care doctor 7-10 days after discharge. 12. Contact [facility] with any questions, . Procedures: Right total knee arthroplasty Patient Condition at Discharge: Good Plan - Discharge Summary Discharge Rx Participant: No New Discharge Prescriptions: New Heparin Sodium,Porcine [Heparin Sodium] 5,000 unit SQ Q12HR #30 each Docusate [Colace] 100 mg PO DAILY #30 capsule HYDROcodone/APAP 5-325MG [[place] 5-325] 1 tab PO Q6HR PRN #28 tab PRN Reason: Pain polyethylene glycoL 3350 [Miralax] 17 gm PO DAILY PRN #12 packet PRN Reason: Constipation Sennosides [Senokot] 8.6 mg PO DAILY PRN tab PRN Reason: Constipation Continue Warfarin [Coumadin] 7.5 mg PO MOWEFR Cholecalciferol [Vitamin D3 (25 Mcg = 1000 Iu)] 25 mcg PO DAILY [place]-3 Fatty Acids/Fish Oil [Fish Oil 1,000 mg Softgel] 1 each PO DAILY Aspirin [Adult Low Dose Aspirin EC] 81 mg PO DAILY Warfarin [Coumadin] 3.75 mg PO [facility] Discharge Medication List Aspirin [Adult Low Dose Aspirin EC] 81 mg PO DAILY 11/05/21 [History] Cholecalciferol [Vitamin D3 (25 Mcg = 1000 Iu)] 25 mcg PO DAILY 11/05/21 [History] [place]-3 Fatty Acids/Fish Oil [Fish Oil 1,000 mg Softgel] 1 each PO DAILY 11/05/21 [History] Warfarin [Coumadin] 3.75 mg PO [place] 11/05/21 [History] Warfarin [Coumadin] 7.5 mg PO MOWEFR 11/05/21 [History] Docusate [Colace] 100 mg PO DAILY #30 capsule 11/15/21 [Rx] HYDROcodone/APAP 5-325MG [[place] 5-325] 1 tab PO Q6HR PRN #28 tab 11/15/21 [Rx] Heparin Sodium,Porcine [Heparin Sodium] 5,000 unit SQ Q12HR #30 each 11/15/21 [Rx] Sennosides [Senokot] 8.6 mg PO DAILY PRN tab 11/15/21 [Rx] polyethylene glycoL 3350 [Miralax] 17 gm PO DAILY PRN #12 packet 11/15/21 [Rx] Follow up Appointment(s)/Referral(s): Ole Fletcher PAC [PHYSICIAN ENVIRONMENTAL ENGINEERING ASSISTANT] - 11/28/21 3:00 pm [facility] [NON-STAFF] - (Please call [facility] to let them know when you get home so that they schedule your in home nursing and physical therapy services. ) [facility] [Primary Care Provider] - 1 Week Ambulatory/Diagnostic Orders: Prothrombin Time INR [LAB.AMB] Location: None Selected Activity/Diet/Wound Care/Special Instructions: Orthopedic Discharge Instructions: 1. Wound care and infection precautions, keep incision dry and covered while showering, no lotions, creams, moisturizers. No soaking, pools, hot tubs. Do not scrub over incision. 2. Weight-bear as tolerated with walker / cane until follow-up. 3. Ice and elevate when necessary. Do not exceed 20 minutes per hour with ice pack. 4. Utilize compression sleeve until seen at first follow up appointment. 5. Pain meds and anticoagulants per prescription. 6. Pain medication has potential to cause constipation. Increase oral fluid and fiber intake. Contact primary care provider if you have not had a bowel movement within 48 hours after discharge. 7. No anti-inflammatory medication until discussed at first post operative visit, this including Motrin, Aleve, Mobic, Diclofenac. 8. Follow up in office at 2 weeks postop with Lonnie Fletcher PA-C/Yobany Wang PA-C 9. Follow up with your primary care doctor 7-10 days after discharge. 10. Contact [facility] with any questions, . Discharge Disposition: TRANSFER TO SNF/ECF
[2021-11-15 14:53] VITALS: BP 124/71; PULSE 43; TEMP 98.9
--- NOTE | 2021-11-15 15:15 | P.PN ---
Subjective Progress Note Date: 11/15/21 Subjective Patient admitted for right knee arthroplasty osteoarthritis patient has an attack in all catheter for pain management and patient pain is well-controlled disease with the didn't participate well with physical therapy. Patient otherwise denied any symptoms. 11/14/2021 Patient pain is well controlled when not ambulating upon exercise and ambulation patient does still having pain. Patient does have bowel sounds were did not move his bowels didn't pass much of gas. Patient was started on senna and MiraLAX for that patient last bowel movement was on Friday. Patient was started on Lovenox due to prophylaxis dose at this time patient is also on Coumadin was resumed on Coumadin. Patient probably will be discharged to subacute rehabitation tomorrow. 11/15/2021 Patient is seen and evaluated in follow-up and is status post right knee arthroplasty with orthopedics following closely. Patient continues with some right knee swelling and discomfort and surgical site is dry and intact with minimal redness noted around the dressing. Encourage the patient to increase activity as tolerated and work with physical therapy and will be going to [facility] for continued PT/OT therapy. Also encourage the patient to continue to elevate lower extremity while at rest and continue with recommended exercises to increase mobility. Patient with a low-grade temp early last night of 99.8 and has been afebrile today. Patient denies any chest pain or shortness of breath. Patient is resting comfortably with oxygen saturations of 94% on room air. Patient reports the tolerating diet with no reports of nausea or vomiting noted. Patient is passing gas and having bowel movements. Patient normally takes Coumadin and continue to be subtherapeutic and INR is 1.2 and most likely will need bridging with heparin subcu until Coumadin is therapeutic. Recommend close monitoring of PT/INR in the outpatient setting. Review of systems: Constitutional: Denied any fatigue denied any fever. Cardio vascular: denied any chest pain, palpitations Gastrointestinal denied any nausea vomiting Pulmonary: Denied any shortness of breath cough Neurologic denied any new focal deficits Labs: WBC is 6.19, hemoglobin is 11.3, platelets are 125, INR is 1.2. All inpatient medications were reviewed and appropriate changes in these medications as dictated in the interval history and assessment and plan. Active Medications Hydrocodone Bitart/Acetaminophen (Hydrocodone/Apap 5-325mg 1 Each Tab) 1 each PO Q6HR PRN PRN Reason: Pain Scale 1 to 5 Stop: 12/12/21 17:13 Last Admin: 11/13/21 20:00 Dose: 1 each Documented by: Hydrocodone Bitart/Acetaminophen (Hydrocodone/Apap 5-325mg 1 Each Tab) 2 each PO Q6HR PRN PRN Reason: Pain Scale 6 to 10 Stop: 12/12/21 17:13 Last Admin: 11/13/21 14:11 Dose: 2 each Documented by: Ropivacaine 1,090 mg/ Bandage/ (Support Products 1 each) 0 mg MISCELLANE Q2H PRN PRN Reason: Breakthrough Pain Stop: 12/12/21 15:14 Last Admin: 11/12/21 17:42 Dose: 1,090 mg Documented by: Enoxaparin Sodium (Enoxaparin 30 Mg/0.3 Ml Syringe) 30 mg SQ Q12HR [facility] Stop: 12/12/21 09:01 Last Admin: 11/15/21 10:49 Dose: 30 mg Documented by: Hydromorphone HCl (Hydromorphone 0.5 Mg/0.5 Ml Syringe) 0.5 mg IVP Q3HR PRN PRN Reason: Pain Scale 7 to 10 Stop: 12/12/21 17:13 Hydromorphone HCl (Hydromorphone 0.5 Mg/0.5 Ml Syringe) 0.125 mg IVP Q3HR PRN PRN Reason: Pain Scale 1 to 3 Stop: 12/12/21 17:13 Hydromorphone HCl (Hydromorphone 0.2 Mg/1 Ml Syringe) 0.2 mg IVP Q3HR PRN PRN Reason: Pain Scale 4 to 6 Stop: 12/12/21 17:13 Lactated Ringer's (Lactated Ringers) 1,000 mls @ 20 mls/hr IV .Q24H [facility] Stop: 12/12/21 05:51 Last Admin: 11/15/21 07:27 Dose: Not Given Documented by: Sodium Chloride (Saline 0.9%) 1,000 mls @ 50 mls/hr IV .Q20H [facility] Stop: 12/12/21 17:16 Last Admin: 11/15/21 07:25 Dose: 50 mls/hr Documented by: Lidocaine HCl (Lidocaine 1% (10mg/Ml) For Iv Start) 0.1 ml INTRADERMA PER PROTOCOL PRN PRN Reason: IV Start Stop: 12/12/21 05:51 Miscellaneous Information (Warfarin Per Pharmacy) 1 each MISCELLANE DIRECTED PRN PRN Reason: Per Protocol Naloxone HCl (Naloxone 0.4 Mg/Ml 1 Ml Vial) 0.2 mg IV Q2M PRN PRN Reason: Opioid Reversal Stop: 12/12/21 17:13 Ondansetron HCl (Ondansetron 4 Mg/2 Ml Vial) 4 mg IVP Q8HR PRN PRN Reason: Nausea And Vomiting Stop: 12/12/21 17:13 Senna (Sennosides 8.6 Mg Tab) 8.6 mg PO DAILY PRN PRN Reason: Constipation Senna/Docusate Sodium (Sennosides-Docusate Sodium 1 Each Tab) 2 each PO HS [facility] Stop: 12/12/21 21:01 Last Admin: 11/14/21 21:49 Dose: 2 each Documented by: Warfarin Sodium (Warfarin 3 Mg Tab) 9 mg PO ONCE@1800 ONE Stop: 11/15/21 18:01 PHYSICAL EXAMINATION: GENERAL: The patient is alert and oriented x3, not in any acute distress. Well developed, well nourished. HEENT: Pupils are round and equally reacting to light. EOMI. No scleral icterus. No conjunctival pallor. Normocephalic, atraumatic. No pharyngeal erythema. No thyromegaly. CARDIOVASCULAR: S1 and S2 present. No murmurs, rubs, or gallops. PULMONARY: Chest is clear to auscultation, no wheezing or crackles. ABDOMEN: Soft, nontender, nondistended, normoactive bowel sounds. No palpable organomegaly. MUSCULOSKELETAL: Deferred to orthopedic surgery EXTREMITIES: No cyanosis, clubbing, or pedal edema. Right knee surgical dressing is dry and intact with some swelling noted around the knee NEUROLOGICAL: Gross neurological examination did not reveal any focal deficits. SKIN: No rashes. Assessment and plan: -History of DVT in the past; patient's Coumadin was resumed although INR is subtherapeutic at 1.2 and will continue with heparin subcu bridging until therapeutic and recommend close outpatient follow-up with PT/INR -History of renal cell carcinoma which is in remission and prostate cancer in remission -Right knee arthroplasty: Patient is status post right knee arthroplasty -GI prophylaxis -DVT prophylaxis -Full code Plan: Recommend continue current medications and management. Patient will need heparin bridging until Coumadin is therapeutic as INR is 1.2 today and Coumadin has been resumed. Recommend close outpatient follow-up with PT/INR in one day and subsequently close monitoring every 2-3 days thereafter until therapeutic. Patient is weak and having difficulty with gait dysfunction and weakness and will be going to [facility] for continued PT/OT therapy. Will continue to monitor closely and follow along closely with orthopedics during hospitalization. Patient anticipates discharge today. Thank you for this consu ltation. Encouraged the patient a follow-up outpatient with primary care provider once discharged from [facility]. Objective - Vital Signs Vital signs: Vital Signs Temp 99.8 F H 11/15/21 00:59 Pulse 81 11/15/21 00:59 Resp 14 11/15/21 00:59 BP 138/79 11/15/21 00:59 Pulse Ox 94 L 11/15/21 00:59 Intake & Output 11/14/21 11/15/21 11/15/21 18:59 06:59 18:59 Intake Total 180 Output Total 225 550 Balance -45 -550 Intake: Oral 180 Output: Urine 225 550 Other: Voiding Method Urinal Urinal # Voids 4 - Labs CBC & Chem 7: 11/15/21 04:53 11/13/21 03:37 Labs: Abnormal Lab Results - Last 24 Hours (Table) 11/15/21 11/15/21 Range/Units 04:49 04:53 RBC 3.45 L (4.40-5.60) X 10*6/uL Hgb 11.3 L (13.0-17.0) g/dL Hct 33.7 L (39.6-50.0) % MCV 97.7 H (80.0-97.0) fL MCH 32.8 H (27.0-32.0) pg Plt Count 125 L (140-440) X 10*3/uL Eosinophils # 0.03 L (0.04-0.35) X 10*3/uL PT 12.5 H (9.0-12.0) sec INR 1.2 H (<1.2)
[2021-11-15] MEDS ORDERED: WARFARIN 3 MG TAB PO ONE (18:00)
== END 2021-11-15 15:15 ==
LOC: OR 12:41 → 4SSUR 19:39 → OR 11-13 13:45
PROVIDERS: ADMIT Orthopaedic Surgery; ATTEND Orthopaedic Surgery
DX: M17.11 Unilateral primary osteoarthritis, right knee (principal); E55.9 Vitamin D deficiency, unspecified; Z20.822 Contact with and (suspected) exposure to COVID-19; Z86.718 Personal history of other venous thrombosis and embolism; Z85.46 Personal history of malignant neoplasm of prostate; Z85.528 Personal history of other malignant neoplasm of kidney; Z71.9 Counseling, unspecified; Z79.01 Long term (current) use of anticoagulants; Z79.82 Long term (current) use of aspirin; Z80.3 Family history of malignant neoplasm of breast
CPT/HCPCS: 97116; 97530 ×2; 97162; 97535; 97166; 64999; 64448; 76942; 80048; 85025 ×2; 85610 ×4; 88300; 87635; 73560; 27447; G0378 ×3; C1776; C1713 ×2; J2250; J1100; J0690 ×2; J2405; J3010; J1650 ×3; J2795 ×2; J2704